=== PATIENT | female | born 1960 | race Caucasian/White ===

== ENCOUNTER 2020-05-05 15:28 | Inpatient (IN) | payer MEDICARE, OTHER ==
[~2020-05-05] VITALS: Ht 160 cm; Wt 61.2 kg
--- NOTE | 2020-05-05 15:34 | NUR ---
ANGELO COOLEY FROM [facility] FOR MEDICAL CLEARANCE PRIOR TO GPS ADMISSION ON A 5150 HOLD FOR GTO/GD @1435 05/05/20, PT IS AAOX2, NOT IN RESPIRATORY DISTRESS, V/S STABLE, KEPT RESTED AND COMFORTABLE, WILL CONTINUE TO MONITOR.
--- NOTE | 2020-05-05 15:50 | NUR ---
URINE SPECIMEN COLLECTED AND SENT TO LAB.
--- NOTE | 2020-05-05 16:09 | NUR ---
ER PHLEB AT BEDSIDE FOR BLOOD DRAW.
[2020-05-05 16:19] LABS: BASOPHILS % (AUTO) 0.7 % (0.0-2.0); EOSINOPHILS % (AUTO) 2.1 % (0.0-6.0); HEMATOCRIT 44 % (33-45); HEMOGLOBIN 14.5 g/dL (11.5-14.8); LYMPHOCYTES % (AUTO) 33.9 % (20.0-44.0); MEAN CORPUSCULAR HGB CONC 33 g/dl (31.0-36.0); MEAN CORPUSCULAR VOLUME 85 fL (82-100); MONOCYTES # (AUTO) 0.5 /CMM (0.1-1.30); MONOCYTES % (AUTO) 7.7 % (2.0-12.0); NEUTROPHILS # (AUTO) 3.3 /CMM (1.8-8.9); NEUTROPHILS % (AUTO) 55.6 % (43.0-81.0); PLATELET COUNT (AUTO) 221 /CMM (150-450); WHITE BLOOD COUNT (AUTO) 5.9 K/uL (4.3-11.0)
[2020-05-05 16:23] LABS: APPEARANCE,URINE Clear (CLEAR); BILIRUBIN,URINE Negative (NEGATIVE); BLOOD, URINE Small Ery/uL (NEGATIVE); COLOR,URINE Yellow (YELLOW); KETONES,URINE Negative (NEGATIVE); LEUKOCYTE ESTERASE ,URINE Negative (NEGATIVE); NITRITE, URINE Negative (NEGATIVE); PROTEIN,URINE Negative (NEGATIVE); UGLUCOSE Negative (NEGATIVE); UROBILINOGEN,URINE 0.2 EU/dL (0.2)
[2020-05-05 16:24] LABS: CARBON DIOXIDE 28 mmol/L (21-32); CHLORIDE 101 mmol/L (98-107); CREATININE 0.8 mg/dL (0.6-1.3); GLUCOSE 94 mg/dL (74-106); POTASSIUM 4.5 mmol/L (3.5-5.1); SODIUM SERUM 137 mmol/L (136-145); UREA NITROGEN, BLOOD 25 mg/dL (7-18)
[2020-05-05 16:35] LABS: BACTERIA,URINE Few /HPF (None Seen); SQUAMOUS EPITHELIAL CELL,UR Few /HPF (None Seen); WBC,URINE 0-2 /HPF (0-3)
[2020-05-05 16:37] LABS: ALANINE AMINOTRANSFERASE 20 U/L (12-78); ALBUMIN 3.5 g/dL (3.4-5.0); ALCOHOL, BLOOD < 3 mg/dL (0-0); ALKALINE PHOSPHATASE 71 U/L (46-116); ASPARTATE AMINOTRANSFERASE 21 U/L (15-37); BILIRUBIN,DIRECT 0.1 mg/dL (0.0-0.2); BILIRUBIN,TOTAL 0.2 mg/dL (0.2-1.0); SALICYLATE 4.1 mg/dL (2.8-20.0); TOTAL PROTEIN, SERUM 6.8 g/dL (6.4-8.2)
[2020-05-05 16:38] LABS: ACETAMINOPHEN 0 ug/ml (10-30)
--- NOTE | 2020-05-05 17:24 | NUR ---
REPORT GIVEN TO RACHEL LYNCH FOR FUNMILAYO.
[2020-05-05] MEDS ORDERED: TEMAZEPAM 7.5 MG CAPSULE PO PRN (18:00)
[2020-05-05] MEDS ORDERED: BLOOD SUGAR DIAGNOSTIC 1 EACH STRIP IN ONE (18:00)
[2020-05-05] MEDS ORDERED: ACETAMINOPHEN 325 MG TABLET PO PRN (18:00)
[2020-05-05] MEDS ORDERED: LORAZEPAM 0.5 MG TABLET PO PRN (18:00)
[2020-05-05] MEDS ORDERED: MAGNESIUM HYDROXIDE 30 ML UDC PO PRN (18:00)
[2020-05-05] MEDS ORDERED: MAG HYDROX/AL HYDROX/SIMETH 30 ML UDC PO PRN (18:00)
[2020-05-05 18:11] VITALS: BP 123/72
--- NOTE | 2020-05-05 19:35 | NUR ---
GPS RN NOTE: ADMISSION PATIENT ARRIVED TO GPS UNIT DURING AM SHIFT AROUND 1748, ADMITTED 59-YR OLD FEMALE, FROM [facility] TO [facility] ER & THEN TO GPS UNIT. PATIENT IS ORIGINALLY FROM [facility]. PER 5150 HOLD, PT. WAS REFUSING MEDS & CARE & BECAME AGGRESSIVE, YELLING/CURSING TOWARDS STAFF & RESIDENTS AT B [facility] C FACILITY. PER B & C STAFF, THIS TIS NOT HER BASE LINE BEHAVIOR. UPON FACE TO FACE ASSESSMENT, PATIENT IS A/OX2-3, CONFUSED, FORGETFUL, ANXIOUS/RESTLESS AT TIMES. FLAT AFFECT. DENIES SI/HI AT THIS TIME. DISORGANIZED, POOR HYGIENE, DISHEVELED. AMBULATORY/STEADY, CONTINENT. PT'S RIGHTS HANDBOOK AND A GUIDE TO PRESCRIPTION MEDICATIONS GIVEN. IN NO APPARENT DISTRESS NOTED. BELONGINGS WERE INVENTORIED AND CHECKED FOR CONTRABAND BY AM STAFF. PT. IS UNDER THE PSYCHIATRIC CARE OF DR. MAJANO & UNDER THE MEDICAL CARE OF DR. MCALLISTER. ORDERS OBTAINED BY AM RN. SKIN ASSESSMENT DONE. PT DENIES PAIN/ DISCOMFORT. BED LOCKED AND PLACED IN LOWEST POSITION TO MAINTAIN SAFETY. FALL PRECAUTIONS IMPLEMENTED. BED ALARM ON. WILL CONTINUE TO MONITOR Q15 MINS. FOR SAFETY AND BEHAVIOR.
[2020-05-05 19:52] VITALS: BP 136/69
[2020-05-05 20:00] VITALS: BP 136/69
--- NOTE | 2020-05-05 20:10 | NUR ---
GPS RN NOTE: ASKED THE PATIENT WHO WOULD SHE LIKE THE NURSE TO CALL TO INFORM ABOUT HER ADMISSION AT [facility], GPS UNIT, PATIENT STATED," I HAVE NO FAMILY, NO NEED TO CALL ANYONE." THERE IS NO FAMILY CONTACT NUMBER ON THE FACE SHEET WELL.
[2020-05-05 21:00] VITALS: BP 111/72
[2020-05-05] MEDS: risperiDONE 1 MG TABLET PO SCH (21:17)
[2020-05-05] MEDS: QUETIAPINE FUMARATE 100 MG TABLET PO SCH (21:17)
[2020-05-06] MEDS ORDERED: QUET100T PO (01:53)
[2020-05-06] MEDS ORDERED: HYDR25TA4 PO (01:53)
[2020-05-06] MEDS ORDERED: RISP2TAB5 PO (01:53)
--- NOTE | 2020-05-06 02:41 | NUR ---
GPS RN NOTE: HOME MEDS ENTERED PER PREVIOUS RECORDS, PATIENT UNABLE TO REMEMBER HER HOME MEDS & WILL ENDORSE TO AM RN TO FOLLOW UP WITH AM MD TO RECONCILE HOME MEDS.
[2020-05-06 07:51] LABS: ALBUMIN 3.4 g/dL (3.4-5.0); BILIRUBIN,TOTAL 0.5 mg/dL (0.2-1.0); CALCIUM, SERUM 8.8 mg/dL (8.5-10.1); CREATININE 0.8 mg/dL (0.6-1.3); TOTAL PROTEIN, SERUM 6.8 g/dL (6.4-8.2)
[2020-05-06 07:53] LABS: CHOLESTEROL 138 mg/dL (<200); HDL CHOLESTEROL 45 mg/dL (40-60); LDL 84 mg/dL (0-99); TRIGLYCERIDES 76 mg/dL (30-150)
[2020-05-06 08:00] VITALS: BP 108/62
[2020-05-06] MEDS: HYDROCHLOROTHIAZIDE 25 MG TABLET PO SCH (08:15)
[2020-05-06] MEDS: risperiDONE 1 MG TABLET PO SCH ×2 (08:16→21:12)
[2020-05-06] MEDS: QUETIAPINE FUMARATE 100 MG TABLET PO SCH ×2 (08:16→21:12)
--- NOTE | 2020-05-06 09:00 | NUR ---
RN NOTE- PT QUIET DEPRESSED WITHDRAWN ISOLATIVE MED COMPLIANT DENYING ALL AT PRESENT PO INTAKE FAIR
--- NOTE | 2020-05-06 11:44 | NUR ---
WOUND CARE CONSULT: PT REFUSED SKIN ASSESSMENT AND WOULD NOT MAKE EYE CONTACT. REVIEWED CHART AND ADMISSION PHOTOS WHICH SHOW REDNESS/RASH TO BREASTFOLDS. RECOMMENDATIONS MADE FOR SKIN PROTECTION. DISCUSSED WITH NURSING STAFF. WILL ATTEMPT TO SEE PT AT LATER TIME. MD IN AGREEMENT WITH PLAN OF CARE. CURRENT DWIGHT SCORE IS 21.
--- NOTE | 2020-05-06 12:37 | NUR ---
FACILITY CONTACT: SW contacted [facility] [address] [place] [address] P: [phone] and spoke with Edgar, leasing assistant who states pt has been a resident since 2001 and has never been psychiatrically hospitalized. She states pt is under the care of psychiatrist Dr. Hipolito Hines Address: [address] [place] [address] and states that since COVID-19 restrictions she has been seeing pt virtually and since then pt became non-compliant with medication. Per Edgar, pts baseline is quiet and calm and states that pt has become increasingly agitated and aggressive. She also states that pt has a mother who lives in [place] but states pt does not have any communication with her family. She states that pt is able to return once she is stable for discharge.
--- NOTE | 2020-05-06 14:58 | NUR ---
GROUP NOTE: Pt is not appropriate for group at this time. Pt is responding to internal stimuli and does not engage in conversation. SW called pts name and pt did not respond she was staring that the ceiling and mumbling to self.
[2020-05-06 16:00] VITALS: BP 104/53
[2020-05-06] MEDS: CLOTRIMAZOLE 1% 15 GM TUBE TP SCH (17:24)
--- NOTE | 2020-05-06 19:30 | NUR ---
GPS RN PM OPENING NOTE REPORT RECIEVED FROM SALLIE RAMOS. PT SEEN IN BED WITH EYES CLOSED AWAKENED WITH VOICE. PATIENT IS A/OX2-3, CONFUSED, FORGETFUL WITH FLAT AFFECT. PT DENIES SI/HI AT THIS TIME. APPEARS DISHEVELED. IN NO APPARENT DISTRESS BREATHING EVEN AND UNLABORED DENIES PAIN. BED LOCKED AND PLACED IN LOWEST POSITION TO MAINTAIN SAFETY. FALL PRECAUTIONS IMPLEMENTED. BED ALARM ON. WILL CONTINUE TO MONITOR Q15 MINS. FOR SAFETY AND BEHAVIOR.
[2020-05-06 20:22] VITALS: BP 117/65
[2020-05-07 08:00] VITALS: BP 94/72
[2020-05-07] MEDS: risperiDONE 1 MG TABLET PO SCH ×2 (08:42→21:12)
[2020-05-07] MEDS: HYDROCHLOROTHIAZIDE 25 MG TABLET PO SCH (08:43)
[2020-05-07] MEDS: QUETIAPINE FUMARATE 100 MG TABLET PO SCH ×2 (08:43→21:12)
[2020-05-07] MEDS: CLOTRIMAZOLE 1% 15 GM TUBE TP SCH ×2 (08:48→17:10)
--- NOTE | 2020-05-07 09:00 | NUR ---
RN NOTE- CALM WITHDRAWN ISOLATIVE QUIET DENIES ALL MED COMPLIANT BETTER EYE CONTACT SKIN FUNGAL INFECTION TX W LOTRIMIN
--- NOTE | 2020-05-07 09:55 | NUR ---
WOUND CARE CONSULT: PT ALLOWED ONLY LIMITED ASSESSMENT OF FEET. PLANTAR FEET NOTED TO HAVE CALLUSES, PRESENT ON ADMISSION. PT STATED THAT BREASTFOLD RASH IS IMPROVING WITH LOTRIMIN BUT WOULD NOT ALLOW SKIN ASSESSMENT. PT IS AMBULATORY AND CONTINENT. WILL SEE PRN.
--- NOTE | 2020-05-07 10:18 | NUR ---
INITIAL DISCHARGE NOTE: Pt will be discharged back to [facility] [id number] [place] [address] P: [phone]. MERLY spoke with Edgar, assistant at surgery who states pt is able to return once stable for discharge. MERLY will help form a safe and proper discharge in collaboration with .
--- NOTE | 2020-05-07 15:35 | NUR ---
GROUP NOTE: SW encouraged pt to attend group therapy on this present day. Pt was asleep and not easily roused by verbal cues.
[2020-05-07 16:00] VITALS: BP 100/67
[2020-05-07 19:56] VITALS: BP 111/60
[2020-05-07 21:11] VITALS: BP 114/66
[2020-05-08 08:00] VITALS: BP 111/52
[2020-05-08] MEDS: HYDROCHLOROTHIAZIDE 25 MG TABLET PO SCH (08:21)
[2020-05-08] MEDS: risperiDONE 1 MG TABLET PO SCH ×2 (08:21→20:33)
[2020-05-08] MEDS: CLOTRIMAZOLE 1% 15 GM TUBE TP SCH ×2 (08:21→16:49)
[2020-05-08] MEDS: QUETIAPINE FUMARATE 100 MG TABLET PO SCH ×2 (08:21→20:33)
--- NOTE | 2020-05-08 14:29 | NUR ---
GROUP NOTE: SW encouraged pt to attend group therapy on this present day. Pt was asleep and not easily roused by verbal cues.
[2020-05-08 16:00] VITALS: BP 126/61
[2020-05-08 20:11] VITALS: BP 127/62
[2020-05-09 08:00] VITALS: BP 102/54
[2020-05-09] MEDS: risperiDONE 1 MG TABLET PO SCH ×2 (08:13→21:23)
[2020-05-09] MEDS: QUETIAPINE FUMARATE 100 MG TABLET PO SCH ×2 (08:13→21:23)
[2020-05-09] MEDS: HYDROCHLOROTHIAZIDE 25 MG TABLET PO SCH (08:14)
[2020-05-09] MEDS: CLOTRIMAZOLE 1% 15 GM TUBE TP SCH ×2 (08:15→17:52)
[2020-05-09 16:00] VITALS: BP 110/65
[2020-05-09 20:00] VITALS: BP 118/57
[2020-05-10 08:00] VITALS: BP_SYST 126; BP_SYST 94; BP_DIAS 54; BP_DIAS 82
[2020-05-10] MEDS: HYDROCHLOROTHIAZIDE 25 MG TABLET PO SCH (08:21)
[2020-05-10] MEDS: QUETIAPINE FUMARATE 100 MG TABLET PO SCH ×2 (08:23→21:34)
[2020-05-10] MEDS: risperiDONE 1 MG TABLET PO SCH ×2 (08:23→21:34)
[2020-05-10] MEDS: CLOTRIMAZOLE 1% 15 GM TUBE TP SCH ×2 (08:26→17:38)
[2020-05-10 16:00] VITALS: BP 119/86
[2020-05-10 20:00] VITALS: BP 118/63
[2020-05-11 08:00] VITALS: BP 108/59
[2020-05-11] MEDS: HYDROCHLOROTHIAZIDE 25 MG TABLET PO SCH (08:35)
[2020-05-11] MEDS: CLOTRIMAZOLE 1% 15 GM TUBE TP SCH ×2 (08:37→16:19)
[2020-05-11] MEDS: QUETIAPINE FUMARATE 100 MG TABLET PO SCH ×2 (08:38→21:42)
[2020-05-11] MEDS: risperiDONE 1 MG TABLET PO SCH ×2 (08:38→21:42)
[2020-05-11 16:00] VITALS: BP 131/76
[2020-05-11 20:35] VITALS: BP 102/57
[2020-05-12 08:00] VITALS: BP 107/60
[2020-05-12] MEDS: QUETIAPINE FUMARATE 100 MG TABLET PO SCH ×2 (08:25→21:07)
[2020-05-12] MEDS: HYDROCHLOROTHIAZIDE 25 MG TABLET PO SCH (08:26)
[2020-05-12] MEDS: CLOTRIMAZOLE 1% 15 GM TUBE TP SCH ×2 (08:26→16:33)
[2020-05-12] MEDS: risperiDONE 1 MG TABLET PO SCH ×2 (08:26→21:06)
[2020-05-12 16:00] VITALS: BP 113/65
[2020-05-12 21:21] VITALS: BP 130/75
[2020-05-13 08:00] VITALS: BP 100/57
[2020-05-13] MEDS: QUETIAPINE FUMARATE 100 MG TABLET PO SCH ×2 (08:18→21:31)
[2020-05-13] MEDS: risperiDONE 1 MG TABLET PO SCH ×2 (08:18→21:30)
[2020-05-13] MEDS: HYDROCHLOROTHIAZIDE 25 MG TABLET PO SCH (08:20)
[2020-05-13] MEDS: CLOTRIMAZOLE 1% 15 GM TUBE TP SCH ×2 (08:23→17:34)
--- NOTE | 2020-05-13 09:20 | NUR ---
FACILITY CONTACT: MERLY contacted [facility] [address] [place] [address] P: [phone] and left a message for Edgar, front end assistant with [facility] house [facility] informing her that pt will be discharged on 05/15/20 or 05/16/20. MERLY requested a callback.
--- NOTE | 2020-05-13 15:53 | NUR ---
INDIVIDUAL INTERVENTION: SW attempted to meet with pt to discuss pts mood and discharge plan, pt did not engage in conversation and appeared to be responding to internal stimuli. Pt was was sitting on a chair starring at the wall and did not respond to SW.
[2020-05-13 16:00] VITALS: BP 124/69
[2020-05-13 20:16] VITALS: BP 131/67
[2020-05-14 08:00] VITALS: BP 99/50
[2020-05-14] MEDS: HYDROCHLOROTHIAZIDE 25 MG TABLET PO SCH (09:00)
[2020-05-14] MEDS: risperiDONE 1 MG TABLET PO SCH ×2 (09:00→21:33)
[2020-05-14] MEDS: QUETIAPINE FUMARATE 100 MG TABLET PO SCH ×2 (09:00→21:33)
[2020-05-14] MEDS: CLOTRIMAZOLE 1% 15 GM TUBE TP SCH ×2 (09:06→16:47)
--- NOTE | 2020-05-14 13:58 | NUR ---
INDIVIDUAL INTERVENTION: SW attempted to meet with pt to discuss pts mood and discharge plan, pt did not engage in conversation and appeared to be responding to internal stimuli. Pt was was sitting on her bed starring at the ceiling and did not respond to SW.
--- NOTE | 2020-05-14 14:07 | NUR ---
FACILITY CONTACT: MERLY contacted [facility] [address] [place] [address] P: [phone] and spoke with Edgar, event marketing assistant informing her pt will be discharged on 05/16/20. Edgar agreed and stated she is unable to provide transportation.
[2020-05-14 16:00] VITALS: BP 118/74
[2020-05-14 20:39] VITALS: BP 102/52
[2020-05-15 08:00] VITALS: BP_SYST 100; BP_DIAS 55; BP_DIAS 66
[2020-05-15] MEDS: CLOTRIMAZOLE 1% 15 GM TUBE TP SCH ×2 (08:28→16:40)
[2020-05-15] MEDS: QUETIAPINE FUMARATE 100 MG TABLET PO SCH ×2 (08:28→21:34)
[2020-05-15] MEDS: risperiDONE 1 MG TABLET PO SCH ×2 (08:28→21:34)
[2020-05-15] MEDS: HYDROCHLOROTHIAZIDE 25 MG TABLET PO SCH (08:31)
--- NOTE | 2020-05-15 11:51 | NUR ---
SNF REFERRAL: MERLY faxed SNF referral to [facility] [address] [place] [address] P: [phone] for review.
--- NOTE | 2020-05-15 13:33 | NUR ---
SNF REFERRAL: MERLY faxed SNF referral to [facility] Address: [address] [facility], [place] [address] .
--- NOTE | 2020-05-15 15:42 | NUR ---
FACILITY CONTACT: MERLY contacted [facility] [address] [place] [address] P: [phone] and spoke with Edgar, assistant to the director informing her of pts current symptoms/behaviors, Edgar states that this is pts baseline and will accept her back. Edgar states that she does not recommend pt being discharged via taxi voucher as pt is selectively mute. MERLY states that she will arrange for transportation.
[2020-05-15 16:00] VITALS: BP 121/59
[2020-05-15 20:00] VITALS: BP 128/68
[2020-05-16 08:00] VITALS: BP 102/57
[2020-05-16] MEDS: QUETIAPINE FUMARATE 100 MG TABLET PO SCH (08:22)
[2020-05-16 08:23] VITALS: BP 102/57
[2020-05-16] MEDS: risperiDONE 1 MG TABLET PO SCH (08:23)
[2020-05-16] MEDS: HYDROCHLOROTHIAZIDE 25 MG TABLET PO SCH (08:23)
[2020-05-16] MEDS: CLOTRIMAZOLE 1% 15 GM TUBE TP SCH (08:24)
--- NOTE | 2020-05-16 08:42 | NUR ---
Dr. Cote gave an order to D/C hold and D/C to [facility] and to follow up, with the psychiatrist Dr. Hipolito Hines at [address] [facility], [address] with the tel# of [phone] and to follow with the him director at [facility] with the address of [address] [place] [address], [facility], [address] with the tel# of [phone]. Pt. without distress, denies suicidal and homicidal. Addendum: 05/16/20 at 1159 [address] Cintron made aware of the discharge and provided a prescriptions.
--- NOTE | 2020-05-16 09:28 | NUR ---
DISCHARGE NOTE: Pt will be discharged via [facility] between 1:30-2:00pm to [facility] [address] [place] [address] P: [phone]. Pt has no family to notify. Pts mood is paranoid with flat affect. Pt responding to internal stimuli. Pt denied suicidal/homicidal ideation. Pt will follow up with Psychiatrist: Dr. Hipolito Hines Address: [address] [place] [address] and Cost Clerk: [facility] Address: [address] [address] . The multidisciplinary exit care form was done, printed, signed, and given to the patient.
--- NOTE | 2020-05-16 13:45 | NUR ---
PAtient cleared for d/c by MD. Patient awake alert and oriented x3, cooperative and calm. Patient is ambulatory. Breathing unlabored and even on room air.Not in any distress. Patient denies SI/HI. Education and prescription provided to patient; patient verbalized understanding. Patient will f/u with PCP. Patient sighed all d/c paperwork including valuable form and all belongings with the patient. D/C pictures taken and place in patient's chart. Patient picked up by ambulance
== END 2020-05-16 13:45 | disposition home or self-care (01) | DRG 885 ==
LOC: ER 15:32 → GPS 17:26
PROVIDERS: ADMIT Psychiatry & Neurology Psychiatry; ATTEND Internal Medicine
DX: F20.0 Paranoid schizophrenia (principal); I10 Essential (primary) hypertension; R27.8 Other lack of coordination; F41.9 Anxiety disorder, unspecified; F32.9 Major depressive disorder, single episode, unspecified; M62.81 Muscle weakness (generalized); Z91.81 History of falling
CPT/HCPCS: 36415; 80048-TC; 80053-TC; 80061-TC; 80076-TC; 80305; 81000-TC; 85025-TC; 87081-TC; G0480